=== PATIENT | female | born 1970 | race American Indian/Alaskan Native ===

== ENCOUNTER 2021-01-26 13:43 | Emergency (ER) | payer BC ==
[2021-01-26] MEDS ORDERED: ACETAMINOPHEN 500 MG TAB PO ONE (16:49)
--- NOTE | 2021-01-26 17:19 | Emergency Department Report ---
ED Dizziness HPI - General Chief Complaint: Dizziness Stated Complaint: DIZZINESS Time Seen by Provider: 01/26/21 16:21 Source: patient Mode of arrival: Ambulatory Limitations: No Limitations - History of Present Illness Initial Comments: Patient is a 50-year-old female with significant history of anemia, hypertension she presents emergency department complaint of headache dizziness and elevated blood pressures. Patient notes that she thinks she is going through menopause but has had some heavy cycles. Her cycles last about 3 days and states she is currently on them. She states when she moves around or holds her head a certain way this sometimes worsens her dizziness. She notes she had headache on yesterday but this headache has since improved. Her blood pressures have been as high as 200 systolic but here are 1 in the 170s. She notes that she is on hydrochlorothiazide 12.5 states is daily. She states that she has to call her primary care doctor for a new prescription for her medications. She denies any chest pain or feeling shortness of breath. MD Complaint: dizziness - Related Data Previous Rx's Medication Instructions Recorded Last Taken Type hydroCHLOROthiazide 12.5 mg PO DAILY 30 Days #30 01/26/21 Unknown Rx [Hydrochlorothiazide] capsule Allergies Allergy/AdvReac Type Severity Reaction Status Date / Time No Known Allergies Allergy Unverified 01/26/21 17:22 ED Review of Systems ROS: Stated complaint: DIZZINESS Other details as noted in HPI Constitutional: no symptoms reported Eyes: denies: eye pain, eye discharge, vision change ENT: denies: ear pain, throat pain Respiratory: denies: cough, shortness of breath, wheezing Cardiovascular: denies: chest pain, palpitations Endocrine: no symptoms reported Gastrointestinal: denies: abdominal pain, nausea, diarrhea Genitourinary: denies: urgency, dysuria, discharge Musculoskeletal: denies: back pain, joint swelling, arthralgia Skin: denies: rash, lesions Neurological: headache. denies: abnormal gait Psychiatric: denies: anxiety, depression Hematological/Lymphatic: easy bleeding. denies: easy bruising ED Past Medical Hx - Medications Home Medications: Home Medications Medication Instructions Recorded Confirmed Last Taken Type hydroCHLOROthiazide 12.5 mg PO DAILY 30 Days #30 01/26/21 Unknown Rx [Hydrochlorothiazide] capsule ED Physical Exam - General Limitations: No Limitations General appearance: alert, in no apparent distress - Head Head exam: Present: atraumatic, normocephalic - Eye Eye exam: Present: normal appearance - ENT ENT exam: Present: mucous membranes moist - Neck Neck exam: Present: normal inspection - Respiratory Respiratory exam: Present: normal lung sounds bilaterally. Absent: respiratory distress - Cardiovascular Cardiovascular Exam: Present: regular rate, normal rhythm. Absent: systolic murmur, diastolic murmur, rubs, gallop - GI/Abdominal GI/Abdominal exam: Present: soft, normal bowel sounds - Rectal Rectal exam: Present: deferred - Extremities Exam Extremities exam: Present: normal inspection - Back Exam Back exam: Present: normal inspection - Neurological Exam Neurological exam: Present: alert, oriented X3, CN II-XII intact, normal gait. Absent: motor sensory deficit - Psychiatric Psychiatric exam: Present: normal affect, normal mood - Skin Skin exam: Present: warm, dry, intact, normal color. Absent: rash ED Course Vital Signs 01/26/21 01/26/21 01/26/21 13:57 17:29 19:25 Temperature 98.6 F 97.8 F Pulse Rate 75 62 Respiratory 16 16 20 Rate Blood Pressure 171/70 175/80 [Right] O2 Sat by Pulse 98 100 Oximetry - Reevaluation(s) Reevaluation #1: 01/26/21 19:50 Patient feels improved. EKG is normal, CT head is normal, labs are normal. Given this patient is to follow-up with primary care for more discussion about her hypertension and dizziness. ED Medical Decision Making - Lab Data Result diagrams: 01/26/21 17:08 01/26/21 17:08 - EKG Data -: EKG Interpreted by Tx EKG shows normal: sinus rhythm Rate: normal - Radiology Data Radiology results: report reviewed, image reviewed - Medical Decision Making Patient is a 50-year-old female presents emergency department complaint of dizziness headache and elevated blood pressures. Differential includes intracranial abnormality, anemia, chronic dizziness or vertigo. Plan to evaluate with basic labs, CT head, urinalysis and testing. We will give a dose of Tylenol to improve patient's symptoms and will reevaluate after labs and imaging. Critical care attestation.: If time is entered above; I have spent that time in minutes in the direct care of this critically ill patient, excluding procedure time. ED Disposition Clinical Impression: Hypertension, Headache, Dizziness Disposition: 01 HOME / SELF CARE / HOMELESS Is pt being admited?: No Does the pt Need Aspirin: No Condition: Stable Instructions: Hypertension (ED), Hypertension, Adult, [id number], Dizziness, [id number] Prescriptions: hydroCHLOROthiazide [Hydrochlorothiazide] 12.5 mg PO DAILY 30 Days #30 capsule Referrals: PRIMARY CARE, [Primary Care Provider] - 3-5 Days
[2021-01-26 17:35] LABS: Basophils # (Auto) 0.1 K/mm3 (0.0-0.1); Basophils % (Auto) 1.1 % (0.0-1.8); Lymphocytes # (Auto) 1.3 K/mm3 (1.2-5.4); Lymphocytes % (Auto) 23.7 % (13.4-35.0); Mean Corpuscular HGB Conc 30 % (30-34); Mean Corpuscular Volume 79 fl (79-97); Monocytes # (Auto) 0.6 K/mm3 (0.0-0.8); Platelet Count 229 K/mm3 (140-440); Red Blood Count 4.98 M/mm3 (3.65-5.03); Red Cell Distribution Width 19.6 % (13.2-15.2)
[2021-01-26 17:38] LABS: Hemoglobin 11.9 gm/dl (10.1-14.3)
[2021-01-26 17:39] LABS: Hematocrit 39.4 % (30.3-42.9)
[2021-01-26 18:00] LABS: Alanine Aminotransferase 15 units/L (7-56); Albumin 4.2 g/dL (3.9-5); BUN/Creatinine Ratio 6; Blood Urea Nitrogen 5 mg/dL (7-17); Calcium 9.5 mg/dL (8.4-10.2); Hemolysis Index 19
--- NOTE | 2021-01-26 18:24 | Cat Scan Report ---
CT head/brain wo con INDICATION / CLINICAL INFORMATION: 50 years Female; headache; dizziness. TECHNIQUE: Routine CT head without contrast. All CT scans at this location are performed using CT dos e reduction for ALARA by means of automated exposure control. COMPARISON: None. FINDINGS: BRAIN / INTRACRANIAL CONTENTS: The brain appears to demonstrate appropriate attenuation. The ventricu lar system is within normal limits in size and configuration. There is no clear CT evidence of acute intracranial hemorrhage or significant mass effect. ORBITS: No significant abnormality of visualized orbits. SINUSES / MASTOIDS: No significant abnormality in the visualized paranasal sinuses or mastoid air debra ls. CRANIOCERVICAL JUNCTION: No significant abnormality. ADDITIONAL FINDINGS: None. IMPRESSION: 1. There is no CT evidence of acute intracranial process. Signer Name: Stewart Fontaine MD Signed: 01/26/2021 6:19 PM Workstation Name: [id number]
[2021-01-26 18:52] LABS: Bilirubin,Urine NEG (Negative); Blood,Urine SM (Negative); Color,Urine Colorless (Yellow); Protein,Urine <15 mg/dL mg/dL (Negative); Urobilinogen,Urine < 2.0 mg/dL (<2.0); WBC,Urine < 1.0 /HPF (0.0-6.0)
[2021-01-26 19:00] LABS: HCG Qualitative,Urine Negative (Negative)
[2021-01-26 20:26] VITALS: BP 155/62
== END 2021-01-26 20:27 | disposition home or self-care (01) ==
LOC: ED 13:43
DX: I10 Essential (primary) hypertension (principal); R51.9 Headache, unspecified; R42 Dizziness and giddiness
CPT/HCPCS: 36415; 70450; 80053; 81001; 81025; 84484; 85025; 93005; 99284